=== PATIENT | female | born 2000 | race Two or more races ===

== ENCOUNTER 2025-01-07 21:23 | Emergency (ER) | payer MEDICAID, SELFPAY ==
[2025-01-07 21:23] VITALS: BMI 26.4
[2025-01-07 21:41] VITALS: BP 105/71; PULSE 79; RESP 18; TEMP 36.6; O2SAT 97
--- NOTE | 2025-01-07 21:45 | EDNOTE_ITS ---
ED Dental RME/HPI General Chief complaint: Dental/Oral/Throat Stated complaint: TOOTHACHE Time Seen by Provider: 01/07/25 21:34 Arrival date/time: 01/07/25 21:23 24 year old female present to emergency room with c/o of dental pain for 2 days. per mother report complaint about pain SEVERITY: Symptoms are described as being severe with limitations on activities of daily living CONTEXT: The patient is unable to identify any inciting events. DURATION/TIMING: The symptoms started approximately 2 days ASSOCIATED SYMPTOMS: The patient is unable to identify any other associated symptoms. MODIFYING FACTORS: The patient is unable to identify any alleviating or aggravating symptoms. PERTINENT ROS: no fevers, no cough, no chest pain/shortness of breath no nausea,vomiting, diarrhea, no dizziness/headache no rash no loc/syncope episode no abd/back pain REVIEW OF SYSTEMS: See History of Present Illness - with the exception of those mentioned in the history of present illness, all other systems reviewed and reported as negative GENERAL: In general the patient is awake, interactive, in an emergency de [facility]. HEAD/EYES/EARS/NOSE/THROAT: normo-cephalic, atraumatic, mucus membranes are moist, anicteric, palpebral conjunctiva is pink, trachea is midline. CARDIOVASCULAR: regular rate and regular rhythm, no murmurs, heart sounds are not distant, strong pulses in all four extremities that are equal and symmetric bilateral upper and lower extremities, normal capillary refill. NEUROLOGICAL: cranio-facial features are symmetric, moves all four extremities equally without obvious limitations or weakness. EXTREMITY: no tenderness to palpation over the long bones or large joints of the bilateral upper and lower extremities, no joint swelling, no joint erythema, no signs of trauma, no unilateral leg swelling and no peripheral edema. SKIN: warm, dry, well-perfused, no jaundice, no rash, no telangiectasias or petechia. PSYCH: calm, cooperative, no evidence of psychosis or agitation Related Data Previous Rx's ?Medication ?Instructions ?Recorded amoxicillin 875 mg-potassium 1 tab PO BID #14 tabs clavulanate 125 mg tablet ketorolac 10 mg tablet 10 mg PO Q8H PRN pain #20 ta bs 01/07/25 Allergies Allergy/AdvReac Type Severity Reaction Status Date / Time No Known Allergies Allergy Verified 09/06/23 11:59 Course Course Course Narrative: Presentation consistent with dental pain of tooth. No evidence of Warren's Angina, large abscess pocket, requirement for emergent extraction, or other complications. Provided prescription for augmentin/toradol? Patient informed to follow up with local dentist. Return to ER if pain uncontrolled, abscess that drains purulent fluid, high fevers, trouble swallowing, or other concerns.? Plan:? Discharge from ED? rx: augmentin, toradol 10mg avoid any other NSAID? F/U with local dentist Informed to return to ED if has new or worsening symptoms. Expressed understanding of and agreement with plan and all questions answered. Quality Measures none Orders Category Date Time Status Amoxicillin/Pot Clav 875 [Augmentin 875] Med 01/07/25 21:39 Discontinued 1 tab PO X1 ONE Ketorolac [Toradol] Med 01/07/25 21:39 Discontinued 10 mg PO X1 ONE Vital Signs Vital signs: Vital Signs Temperature 97.8 F 01/07/25 21:41 Pulse Rate 79 01/07/25 21:41 Respiratory Rate 18 01/07/25 21:41 Blood Pressure 105/71 01/07/25 21:41 Pulse Oximetry (%) 97 01/07/25 21:41 Oxygen Delivery Method Room Air 01/07/25 21:41 Dental / Oral Patient data External records reviewed:: [facility] previous records Clinical information provided by:: patient and parent Social determinants that could affect healthcare access:: mental health Patient has the following chronic illnesses:: n/a How is presenting disease/condition affected by chronic disease/condition?: no chronic disease Evaluation data The following diagnostics were reviewed and interpreted by me:: other (specify) (n/a ) Lab and/or radiology exams considered but not ordered:: n/a Interpretation Summary: n/a Medications / Prescriptions Medications or Prescriptions considered but not ordered:: n/a Medication administrations:: Medication Administration History Discontinued Medications Amoxicillin/Clavulanate Potassium (Amoxicillin/Pot Clav 875 Tablet) 1 tab PO X1 ONE Stop: 01/07/25 21:40 Ketorolac Tromethamine (Ketorolac 10 Mg Tablet) 10 mg PO X1 ONE Stop: 01/07/25 21:40 as stated above Consultations Consultation(s) initiated? (list below): No Diagnosis Most likely diagnosis given after review of the tests above:: dental pain Admission Indicated Admission indicated?: not indicated Admission Request Was there a request for admission?: No Disposition Plan Disposition Plan: Discharge Discharge Attestation Discharge Attestation: The patient and all family members were given an opportunity to ask questions and understood the discharge instructions. Discharge instructions specifically effects, indications for sooner follow up or return to the emergency department, and the expected course of current diagnosis. Patient condition: Stable Discharge Plan Plan Patient Disposition: HOME (Self Care) Prescriptions/Referrals Prescriptions/Med Rec: New amoxicillin-pot clavulanate 875-125 mg tablet 1 tab PO BID Qty: 14 0RF ketorolac 10 mg tablet 10 mg PO Q8H PRN (Reason: pain) Qty: 20 0RF Rx Instructions: maximum total duration of 5 days from all oral, intranasal, or parenteral formulations Referrals: Temporary Provider,ED [Physician] - In 1 week Problem List Clinical Impression: Toothache Patient/Caregiver Discharge Instructions Education Materials: ED Dental Pain Print Language: Armenian Stand Alone Forms: Violet Award Info., Patient Portal Info Letter
[2025-01-07] MEDS: KETOROLAC 10 MG TABLET PO (23:25)
[2025-01-07] MEDS: AMOXICILLIN/POT CLAV 875 TABLET 1 TAB PO (23:26)
== END 2025-01-07 23:29 | disposition home or self-care (01) ==
PROVIDERS: Emergency Provider Emergency Medicine; PCP Internal Medicine
DX: K08.89 Other specified disorders of teeth and supporting structures (principal)
CPT/HCPCS: 99282; A9270